=== PATIENT | female | born 1965 | race Caucasian/White ===

== ENCOUNTER → 2016-09-28 | Outpatient (CLI) | payer OTHER ==
[~2016-09-28] MED LIST: ASPI-496 PO; CALC-141 PO; FLUO20CA8 PO; OMEG1CAP6 PO; SIMV20TA3 PO
== END | disposition home or self-care (01) ==
LOC: CFH 13:43
PROVIDERS: ATTEND Obstetrics & Gynecology Gynecology
DX: Z12.31 Encounter for screening mammogram for malignant neoplasm of breast (principal)
CPT/HCPCS: G0202